=== PATIENT | female | born 2000 | race Caucasian/White ===

== ENCOUNTER 2022-04-02 19:31 | Emergency (ER) | payer OTHER ==
[~2022-04-02] VITALS: Ht 165.1 cm; Wt 72.7 kg
[2022-04-02] MEDS ORDERED: MORPHINE 4 MG/ML 1ML VIAL IV ONE ×2 (19:55→21:40)
[2022-04-02] MEDS ORDERED: ONDANSETRON 4MG 2ML VIAL IV ONE (19:55)
[2022-04-02] MEDS ORDERED: NS 1,000 ML IV ONE (19:55)
[2022-04-02 20:26] LABS: BASO % 0.2 % (0.0-1.0); EOS # 0.1 10^3/uL (0.0-0.5); EOS % 0.4 % (0.0-3.0); HEMATOCRIT 37.7 % (36.0-47.0); HEMOGLOBIN 13.2 g/dl (12.0-15.5); LYMPH # 1.7 10^3/uL (1.5-5.0); LYMPH % 14.4 % (24.0-44.0); MEAN CORPUSCULAR HEMOGLOBIN 30.7 pg (27.0-33.0); MEAN CORPUSCULAR VOLUME 87.7 fl (80.0-96.0); MONO # 0.8 10^3/uL (0.0-0.8); MONO % 6.4 % (2.0-8.0); NEUTROPHILS # 9.2 10^3/uL (1.5-8.5); NEUTROPHILS % 78.2 % (36.0-66.0); PLATELET COUNT, AUTOMATED 259 10^3/uL (150-450); WHITE BLOOD COUNT 11.8 10^3/uL (4.0-10.0)
[2022-04-02 20:50] LABS: CHLORIDE LEVEL 105 MMOL/L (98-107); SODIUM LEVEL 140 MMOL/L (136-145)
[2022-04-02 20:51] LABS: ALBUMIN 4.2 G/DL (3.2-5.2); CARBON DIOXIDE LEVEL 23 MMOL/L (20-31)
[2022-04-02 20:55] LABS: BLOOD UREA NITROGEN 10 MG/DL (9-23); LIPASE 33 U/L (12-53)
[2022-04-02 20:56] LABS: ALKALINE PHOSPHATASE 39 U/L (46-116); CALCIUM LEVEL 8.9 MG/DL (8.5-10.1); GLUCOSE, FASTING 112 MG/DL (60-100)
[2022-04-02 20:58] LABS: ALT/SGPT 14 U/L (7.0-40); AST/SGOT 20 U/L (<34); BILIRUBIN,DIRECT 0.1 MG/DL (<0.4); BILIRUBIN,TOTAL 0.4 MG/DL (0.3-1.2); CREATININE FOR GFR 0.62 MG/DL (0.55-1.30); TOTAL PROTEIN 7.2 G/DL (5.7-8.2)
[2022-04-02 20:59] LABS: POTASSIUM SERUM 3.6 MMOL/L (3.5-5.1)
[2022-04-02 21:40] LABS: BASO % 0.1 % (0.0-1.0); EOS % 0.2 % (0.0-3.0); LYMPH # 1.2 10^3/uL (1.5-5.0); LYMPH % 11.4 % (24.0-44.0); MEAN CORPUSCULAR HGB CONC 35.3 g/dl (32.0-36.5); MEAN CORPUSCULAR VOLUME 87.9 fl (80.0-96.0); MONO # 0.5 10^3/uL (0.0-0.8); MONO % 4.8 % (2.0-8.0); NEUTROPHILS # 8.7 10^3/uL (1.5-8.5); NEUTROPHILS % 83.1 % (36.0-66.0); PLATELET COUNT, AUTOMATED 224 10^3/uL (150-450); RED BLOOD COUNT 3.87 10^6/uL (4.00-5.40); WHITE BLOOD COUNT 10.4 10^3/uL (4.0-10.0)
[2022-04-02] MEDS ORDERED: PERC5TAB12 PO (23:41)
[2022-04-02] MEDS ORDERED: ONDA4TAB6 PO (23:41)
[2022-04-02] MEDS ORDERED: PERCOCET 5MG/325MG TAB PO ONE (23:45)
[2022-04-02] MEDS ORDERED: OXYCODONE/APAP 5MG/325MG(HOME DOSE PACK) PO ONE (23:45)
[2022-04-02] MEDS ORDERED: MORPHINE 2 MG/ML 1ML VIAL IV ONE (23:45)
[2022-04-03 00:39] VITALS: BP 123/57
== END 2022-04-03 00:42 | disposition home or self-care (01) ==
LOC: M ED 19:31
DX: O04.80 (Induced) termination of pregnancy with unspecified complications (principal); N93.9 Abnormal uterine and vaginal bleeding, unspecified; R10.2 Pelvic and perineal pain; Z3A.12 12 weeks gestation of pregnancy; Z80.0 Family history of malignant neoplasm of digestive organs; Z91.018 Allergy to other foods
CPT/HCPCS: 76801; 80048; 80076; 83690; 85025; 86850; 86900; 86901; 93041; 93976; 94760; 96361; 96374; 96375; 96376; 99284; J2270; J2405

== ENCOUNTER 2022-04-10 01:53 | Day surgery (SDC) | payer OTHER ==
[~2022-04-10] VITALS: Ht 165.1 cm; Wt 72.1 kg
[~2022-04-10 01:53] MED LIST: ONDA4TAB6 PO; PERC5TAB12 PO
[2022-04-10] MEDS ORDERED: NS 1,000 ML IV ONE (02:00)
[2022-04-10] MEDS ORDERED: NS 2,160 ML in IV 1 EA IV ONE (02:15)
[2022-04-10 02:29] LABS: BASO % 0.1 % (0.0-1.0); EOS # 0.1 10^3/uL (0.0-0.5); EOS % 0.7 % (0.0-3.0); HEMATOCRIT 27.6 % (36.0-47.0); HEMOGLOBIN 9.4 g/dl (12.0-15.5); LYMPH # 1.7 10^3/uL (1.5-5.0); LYMPH % 22.6 % (24.0-44.0); MEAN CORPUSCULAR HEMOGLOBIN 30.8 pg (27.0-33.0); MEAN CORPUSCULAR HGB CONC 34.1 g/dl (32.0-36.5); MEAN CORPUSCULAR VOLUME 90.5 fl (80.0-96.0); MONO # 0.7 10^3/uL (0.0-0.8); MONO % 8.9 % (2.0-8.0); NEUTROPHILS % 67.4 % (36.0-66.0); PLATELET COUNT, AUTOMATED 222 10^3/uL (150-450); RED BLOOD COUNT 3.05 10^6/uL (4.00-5.40); WHITE BLOOD COUNT 7.4 10^3/uL (4.0-10.0)
[2022-04-10 02:51] LABS: BLOOD UREA NITROGEN 14 MG/DL (9-23); CALCIUM LEVEL 7.5 MG/DL (8.5-10.1); CARBON DIOXIDE LEVEL 23 MMOL/L (20-31); CHLORIDE LEVEL 111 MMOL/L (98-107); CREATININE FOR GFR 0.64 MG/DL (0.55-1.30); GLUCOSE, FASTING 108 MG/DL (60-100); POTASSIUM SERUM 3.9 MMOL/L (3.5-5.1); SODIUM LEVEL 141 MMOL/L (136-145)
[2022-04-10] MEDS ORDERED: fentaNYL 250 MCG/5 ML INJECTION As Ordered ONE (02:51)
[2022-04-10] MEDS ORDERED: propofoL 200 MG/20 ML VIAL As Ordered ONE (02:51)
[2022-04-10] MEDS ORDERED: LIDOCAINE 2% 100MG/5ML SDV (FOR ANES.) As Ordered ONE (02:51)
[2022-04-10] MEDS ORDERED: ONDANSETRON 4MG 2ML VIAL As Ordered ONE ×2 (02:51→04:48)
[2022-04-10] MEDS ORDERED: MIDAZOLAM INJ 2MG/2ML VIAL As Ordered ONE (02:51)
[2022-04-10] MEDS ORDERED: ROCURONIUM BROMIDE 50MG/5ML VIAL As Ordered ONE (02:51)
[2022-04-10] MEDS ORDERED: KETOROLAC 60MG 2ML VIAL As Ordered ONE (02:52)
[2022-04-10 03:09] LABS: RSV AMPLIFICATION NEGATIVE (NEGATIVE)
[2022-04-10] MEDS ORDERED: DOXYCYCLINE HYCLATE 100MG/10ML VIAL ONE (03:29)
[2022-04-10] MEDS ORDERED: SUCCINYLCHOLINE 100MG/5ML SYRINGE As Ordered ONE (03:35)
[2022-04-10] MEDS ORDERED: PHENYLephrine 500MCG 5ML (100MCG/ML) SYRINGE As Ordered ONE (03:35)
[2022-04-10] MEDS ORDERED: ePHEDrine SULFATE 25 MG/5 ML(5MG/ML) SYRINGE As Ordered ONE (03:37)
[2022-04-10] MEDS ORDERED: SUGAMMADEX SODIUM 500 MG/5 ML VIAL (BRIDION) As Ordered ONE (03:39)
[2022-04-10] MEDS ORDERED: METHYLERGONOVINE MALEATE 0.2MG/ML 1ML VIAL ONE (03:53)
[2022-04-10] MEDS ORDERED: LIDOCAINE 1% SDV 30ML VIAL ONE (04:00)
[2022-04-10] MEDS ORDERED: OXYTOCIN INJ 10UNITS/ML 1ML VIAL As Ordered ONE (04:02)
[2022-04-10] MEDS ORDERED: OXYTOCIN INJ 20 UNITS in LR 1,000 ML IV SCH (04:15)
[2022-04-10 04:26] LABS: INR 0.99; PROTHROMBIN TIME 13.3 SECONDS (12.5-14.5)
[2022-04-10 04:27] LABS: PARTIAL THROMBOPLASTIN TIME 25.2 SECONDS (24.8-34.2)
[2022-04-10] MEDS ORDERED: MEPERIDINE 25 MG/ML 1ML VIAL As Ordered ONE (04:48)
[2022-04-10] MEDS ORDERED: MEPERIDINE 25 MG/ML 1ML VIAL ONE (04:52)
[2022-04-10 08:33] LABS: HEMATOCRIT 27.4 % (36.0-47.0); HEMOGLOBIN 9.3 g/dl (12.0-15.5); MEAN CORPUSCULAR HEMOGLOBIN 30.6 pg (27.0-33.0); MEAN CORPUSCULAR HGB CONC 33.9 g/dl (32.0-36.5); MEAN CORPUSCULAR VOLUME 90.1 fl (80.0-96.0); PLATELET COUNT, AUTOMATED 195 10^3/uL (150-450); RED BLOOD COUNT 3.04 10^6/uL (4.00-5.40); WHITE BLOOD COUNT 7.6 10^3/uL (4.0-10.0)
[2022-04-10 09:01] LABS: HCG, SERUM QUANTITATIVE 255.6 MIU/ML (<4.2)
[2022-04-10] MEDS: ACETAMINOPHEN 500 MG TAB PO SCH ×3 (10:02→22:02)
[2022-04-10] MEDS: IBUPROFEN 800 MG TAB PO SCH ×2 (12:18→19:42)
[2022-04-10] MEDS ORDERED: oxyCODONE 5MG TAB PO ONE (16:50)
[2022-04-10] MEDS ORDERED: ONDANSETRON 4MG 2ML VIAL IV PRN (17:00)
[2022-04-11] MEDS: ACETAMINOPHEN 500 MG TAB PO SCH ×2 (04:19→10:09)
[2022-04-11] MEDS: IBUPROFEN 800 MG TAB PO SCH ×2 (04:19→13:07)
[2022-04-11] MEDS ORDERED: IBUP80TA PO (08:44)
[2022-04-11] MEDS ORDERED: OXYC-517 PO (08:44)
[2022-04-11] MEDS ORDERED: ACET-683 PO (08:44)
[2022-04-11 08:45] VITALS: BP 101/54
[2022-04-11 12:30] VITALS: BP 102/50
[2022-04-11 16:25] VITALS: BP 104/85
== END 2022-04-11 16:25 | disposition home or self-care (01) ==
LOC: M ED 01:53 → M PED 05:17 → M ED 04-11 16:25
PROVIDERS: ATTEND Obstetrics & Gynecology
DX: O73.1 Retained portions of placenta and membranes, without hemorrhage (principal); D62 Acute posthemorrhagic anemia; R55 Syncope and collapse; R07.9 Chest pain, unspecified; R42 Dizziness and giddiness; R11.0 Nausea; Z88.0 Allergy status to penicillin; Z91.018 Allergy to other foods; Z79.891 Long term (current) use of opiate analgesic
CPT/HCPCS: 36415; 36430; 59812; 80048; 84702; 85025; 85027; 85610; 85730; 86850; 86900; 86901; 86920; 87631; 88305; 93005; 96361; 96374; 99285; J0330; J1100; J1885; J2175; J2210; J2250; J2370; J2405; J2590; J3010; P9016

== ENCOUNTER 2022-05-21 12:30 | Emergency (ER) | payer OTHER ==
[~2022-05-21] VITALS: Ht 162.6 cm; Wt 77.8 kg
[~2022-05-21 12:30] MED LIST changes: +ACET-683 PO; +IBUP80TA PO; +OXYC-517 PO
[2022-05-21 12:31] VITALS: BP 106/67
[2022-05-21] MEDS ORDERED: ACETAMINOPHEN 500 MG TAB PO ONE (16:05)
[2022-05-21] MEDS ORDERED: BOOSTRIX/ADACEL VACCINE (DIPHTH/PERTUSS/ACELL/TETANUS) 0.5ML SYR IM ONE (16:10)
[2022-05-21] MEDS ORDERED: cefTRIAXone SOD 1 GM in D5W MINI-BAG PLUS 50 ML IV ONE (16:10)
[2022-05-21] MEDS ORDERED: CLINDAMYCIN 600 MG in IV 1 EA IV ONE (16:10)
[2022-05-21 18:03] LABS: BASO % 0.5 % (0.0-1.0); EOS # 0.1 10^3/uL (0.0-0.5); EOS % 1.4 % (0.0-3.0); HEMATOCRIT 37.5 % (36.0-47.0); HEMOGLOBIN 11.7 g/dl (12.0-15.5); LYMPH # 1.9 10^3/uL (1.5-5.0); LYMPH % 33.8 % (24.0-44.0); MEAN CORPUSCULAR HEMOGLOBIN 28.1 pg (27.0-33.0); MEAN CORPUSCULAR HGB CONC 31.2 g/dl (32.0-36.5); MEAN CORPUSCULAR VOLUME 90.1 fl (80.0-96.0); MONO # 0.6 10^3/uL (0.0-0.8); MONO % 11.1 % (2.0-8.0); PLATELET COUNT, AUTOMATED 331 10^3/uL (150-450); RED BLOOD COUNT 4.16 10^6/uL (4.00-5.40); WHITE BLOOD COUNT 5.6 10^3/uL (4.0-10.0)
[2022-05-21 18:41] LABS: ERYTHROCYTE SEDIMENTATION RATE 8 mm/hr (0-20)
[2022-05-21] MEDS ORDERED: CLEO300C2 PO (19:21)
[2022-05-21] MEDS ORDERED: DOXY-443 PO (19:21)
== END 2022-05-21 19:38 | disposition home or self-care (01) ==
LOC: M ED 17:09
DX: S60.371A Other superficial bite of right thumb, initial encounter (principal); B99.9 Unspecified infectious disease; W55.01XA Bitten by cat, initial encounter; Y92.009 Unspecified place in unspecified non-institutional (private) residence as the place of occurrence of the external cause; Z88.0 Allergy status to penicillin; Z79.1 Long term (current) use of non-steroidal anti-inflammatories (NSAID)

== ENCOUNTER 2022-07-23 18:21 | Emergency (ER) | payer OTHER ==
[~2022-07-23] VITALS: Ht 165.1 cm; Wt 72.7 kg
[~2022-07-23 18:21] MED LIST changes: +CLEO300C2 PO; +DOXY-443 PO
[2022-07-23] MEDS ORDERED: NORCO, ANEXSIA 5/325MG TABLET (HYDROcodone/ACETAMINOPHEN) PO ONE (23:15)
[2022-07-24] MEDS ORDERED: KETOROLAC 60MG 2ML VIAL IM ONE
[2022-07-24 01:04] LABS: APPEARANCE, URINE HAZY (CLEAR); BACTERIA, URINE AUTO NEGATIVE (NEGATIVE); BILIRUBIN, URINE AUTO NEGATIVE (NEGATIVE); BLOOD, URINE BLOOD NEGATIVE (NEGATIVE); COLOR, URINE YELLOW (YELLOW); GLUCOSE, URINE (UA) AUTO NEGATIVE (NEGATIVE); KETONE, URINE AUTO TRACE mg/dL (NEGATIVE); LEUKOCYTE ESTERASE, URINE AUTO NEGATIVE (NEGATIVE); MUCUS, URINE SMALL (NEGATIVE); NITRITE, URINE AUTO NEGATIVE (NEGATIVE); PROTEIN, URINE AUTO NEGATIVE (NEGATIVE); RBC, URINE AUTO 0 /HPF (0-3); SPECIFIC GRAVITY URINE AUTO 1.015 (1.002-1.035); SQUAMOUS EPITHELIAL CELL UR AU 0 /HPF (0-6); UROBILINOGEN, URINE AUTO 0.2 mg/dL (0.0-2.0); WBC, URINE AUTO 0 /HPF (0-3)
[2022-07-24 01:57] LABS: HCG, SERUM QUALITATIVE NEGATIVE (NEGATIVE)
[2022-07-24 02:21] VITALS: BP 123/67
[2022-07-24] MEDS ORDERED: PERCOCET 5MG/325MG TAB PO ONE (06:00)
[2022-07-24 06:10] LABS: BASO % 0.6 % (0.0-1.0); EOS # 0.1 10^3/uL (0.0-0.5); EOS % 2.2 % (0.0-3.0); HEMATOCRIT 38.2 % (36.0-47.0); HEMOGLOBIN 12.5 g/dl (12.0-15.5); LYMPH # 1.9 10^3/uL (1.5-5.0); LYMPH % 38.3 % (24.0-44.0); MEAN CORPUSCULAR HEMOGLOBIN 27.1 pg (27.0-33.0); MEAN CORPUSCULAR HGB CONC 32.7 g/dl (32.0-36.5); MEAN CORPUSCULAR VOLUME 82.9 fl (80.0-96.0); MONO # 0.6 10^3/uL (0.0-0.8); MONO % 11.7 % (2.0-8.0); NEUTROPHILS # 2.4 10^3/uL (1.5-8.5); PLATELET COUNT, AUTOMATED 253 10^3/uL (150-450); RED BLOOD COUNT 4.61 10^6/uL (4.00-5.40); WHITE BLOOD COUNT 5.1 10^3/uL (4.0-10.0)
[2022-07-24 06:31] LABS: BLOOD UREA NITROGEN 16 MG/DL (9-23); CALCIUM LEVEL 8.8 MG/DL (8.5-10.1); CARBON DIOXIDE LEVEL 26 MMOL/L (20-31); CHLORIDE LEVEL 108 MMOL/L (98-107); CREATININE FOR GFR 0.78 MG/DL (0.55-1.30); GLUCOSE, FASTING 97 MG/DL (60-100); POTASSIUM SERUM 3.8 MMOL/L (3.5-5.1); SODIUM LEVEL 139 MMOL/L (136-145)
[2022-07-24] MEDS ORDERED: IBUP-1022 PO (09:26)
[2022-07-24] MEDS ORDERED: CYCL-707 PO (09:26)
== END 2022-07-24 10:08 | disposition home or self-care (01) ==
LOC: M ED 18:21
DX: S80.02XA Contusion of left knee, initial encounter (principal); S40.012A Contusion of left shoulder, initial encounter; V49.40XA Driver injured in collision with unspecified motor vehicles in traffic accident, initial encounter; Y92.410 Unspecified street and highway as the place of occurrence of the external cause; Y93.89 Activity, other specified; Y99.8 Other external cause status
CPT/HCPCS: 71101; 73030; 73080; 73200; 73564; 73700; 80048; 81001; 84703; 85025; 96372; 99284; J1885

== ENCOUNTER 2022-12-10 07:05 | Outpatient (CLI) | payer OTHER ==
[~2022-12-10] VITALS: Ht 165.1 cm; Wt 88.6 kg
[~2022-12-10 07:05] MED LIST changes: +CYCL-707 PO; +IBUP-1022 PO
[2022-12-10] MEDS ORDERED: PRENTAB9 PO (07:26)
[2022-12-10 07:33] VITALS: BP 118/59
[2022-12-10] MEDS ORDERED: HOME MED LIST COMPLETE! XX SCH (07:40)
[2022-12-10] MEDS ORDERED: CYCLOBENZAPRINE 10MG TABLET PO ONE (08:10)
[2022-12-10] MEDS ORDERED: FLUCONAZOLE 50MG TABLET PO ONE (08:10)
[2022-12-10 08:58] LABS: APPEARANCE, URINE CLEAR (CLEAR); BACTERIA, URINE AUTO 1+ (NEGATIVE); BILIRUBIN, URINE AUTO NEGATIVE (NEGATIVE); BLOOD, URINE BLOOD NEGATIVE (NEGATIVE); COLOR, URINE YELLOW (YELLOW); GLUCOSE, URINE (UA) AUTO NEGATIVE (NEGATIVE); KETONE, URINE AUTO NEGATIVE (NEGATIVE); LEUKOCYTE ESTERASE, URINE AUTO NEGATIVE (NEGATIVE); MUCUS, URINE SMALL (NEGATIVE); NITRITE, URINE AUTO NEGATIVE (NEGATIVE); PROTEIN, URINE AUTO NEGATIVE (NEGATIVE); RBC, URINE AUTO 0 /HPF (0-3); SQUAMOUS EPITHELIAL CELL UR AU 2 /HPF (0-6); UROBILINOGEN, URINE AUTO 0.2 mg/dL (0.0-2.0); WBC, URINE AUTO 1 /HPF (0-3)
== END 2022-12-10 08:30 | disposition home or self-care (01) ==
LOC: M LDO 07:05
PROVIDERS: ATTEND Obstetrics & Gynecology
DX: O23.592 Infection of other part of genital tract in pregnancy, second trimester (principal); B37.9 Candidiasis, unspecified; O26.892 Other specified pregnancy related conditions, second trimester; R25.2 Cramp and spasm; Z3A.20 20 weeks gestation of pregnancy
CPT/HCPCS: 59025; 81001; 87086; G0463

== ENCOUNTER 2022-12-26 14:31 | Outpatient (CLI) | payer OTHER ==
[~2022-12-26 14:31] MED LIST changes: +PRENTAB9 PO
== END 2022-12-26 15:40 | disposition home or self-care (01) ==
LOC: M LDO 14:31
PROVIDERS: ATTEND Obstetrics & Gynecology
DX: O26.892 Other specified pregnancy related conditions, second trimester (principal); R25.2 Cramp and spasm; Z3A.22 22 weeks gestation of pregnancy
CPT/HCPCS: 59025; 81001; G0463